=== PATIENT | female | born 1960 | race Caucasian/White ===

== ENCOUNTER 2021-02-06 08:18 | Observation (INO) ==
--- NOTE | 2021-01-06 11:38 | Anesthesiology Consultation ---
Date of Service January 06, 2021 Assessment & Plan (1) Encounter for pre-operative examination: Chart Review Chart Review: Acceptable Risk for Surgery (pending preop Covid testing results ) and Patient NOT seen in Pre Admission Testing Pt with pseudocholinesterase deficiency - Check coags AM DOS Per [facility] communication note on 12/30/20= "Per Dr. Cuevas's nurse-he wrote--OK to stop Warfarin for 5 days, should stay on aspirin. Does not need to be bridged." Per nursing assessment 12/23/2020, patient denies any recent travel. No known Covid infection in the past 90 days. Patient is vaccinated for Covid. No known Covid positive contacts or Covid related symptoms. Preop Covid testing scheduled 01/07/21= will await results. Last seen by cardiology 09/04/2020 = seen for follow-up in regards to bicuspid aortic valve with ascending aortic aneurysm status post mechanical AVR with [employer] [facility] mechanical prosthesis and replacement of ascending aorta with 22 mm Dacron tube graft. 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 Also is following up for hypertension and severe esophageal reflux disease. Patient referred to GI for ongoing reflux issues. We will try hydralazine for blood pressure control. Follow-up in 6 months. History Surgery Operation Date: 01/09/21 08:55 Proposed Procedures p Laparoscipic Hiatal Hernia repair with Toupet Fundoplication (does not need EGD) - Tejas Steele, DO Height/Weight Height: 5 ft 5 in Weight: 108.862 kg Allergies Allergy/AdvReac Type Severity Reaction Status Date / Time codeine Allergy Severe other Verified 12/23/20 10:33 morphine Allergy Severe other Verified 12/23/20 10:33 latex Allergy Unknown Rash Verified 12/23/20 10:33 Penicillins Allergy Unknown PT DOESN'T Verified 12/23/20 10:33 REMEMBER, REACTION A CHILD lidocaine AdvReac Severe Nausea Verified 12/23/20 10:33 carvedilol AdvReac Unknown Cough Verified 12/23/20 10:33 furosemide [From Lasix] AdvReac Unknown "PULLS Verified 12/23/20 10:33 WATER INTO MY LUNGS AND I DROWN" Medications Home Medications Medication Instructions Recorded Confirmed Last Taken aspirin 81 mg tablet,delayed 81 mg PO DAILY 11/06/20 12/23/20 11/08/20 release hydralazine 10 mg tablet 10 mg PO BID 11/06/20 12/23/20 11/11/20 17:00 metoprolol succinate 100 mg 100 mg PO QPM 11/06/20 12/23/20 11/11/20 17:00 tablet,extended release 24 hr multivitamin 1 tab PO DAILY 11/06/20 12/23/20 11/07/20 omeprazole 20 mg capsule,delayed 20 mg PO QPM 11/06/20 12/23/20 11/08/20 17:00 release spironolactone 25 mg tablet 25 mg PO HS 11/06/20 12/23/20 11/11/20 17:00 warfarin 2.5 mg tablet 2.5 mg PO 4XWK 11/06/20 12/23/20 11/08/20 warfarin 5 mg tablet 5 mg PO 3XWK 11/06/20 12/23/20 11/08/20 Past Medical History Medical History (Updated 01/06/21 @ 12:40 by JUDSON CrisostomoC) Acid reflux Bicuspid aortic valve HX S/p AVR 11/2017 (MECHANICAL) WITH REPLACEMENT OF ASCENDING AORTA WITH 28MM DACRON GRAFT Breast tumor HX CYSTIC TUMORS REMOVED - LEFT CAD (coronary artery disease) Single vessel per 2018 cardiac cath - 50-60% stenosis of mild LAD, which was negative by FFR (0.86) COPD (chronic obstructive pulmonary disease) Per records Chronic cough per patient Hiatal hernia History of skin cancer REMOVED HTN (hypertension) Hypercholesteremia Pseudocholinesterase deficiency Past Surgical History Surgical History (Updated 01/06/21 @ 12:35 by JUDSON CrisostomoC) History of breast surgery LEFT History of cardiac catheterization 2018 [place] pre op vavle replacement - no stents History of colonoscopy with polypectomy History of esophagogastroduodenoscopy (EGD) History of open heart surgery WITH AORTIC VALVE REPLACEMENT WITH REPLACEMENT OF ASCENDING AORTA WITH TUBE GRAFT ON DECEMBER 10 2017 - [facility] - 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 LIPOMAS, MULTIPLE AREAS REMOVED FROM History of tubal ligation Social History Smoking Status: Never smoker Do You Dip or Chew Tobacco: No Hx Alcohol Use: No Hx Substance Use: No substance use type: does not use Lab Results Anesthesia Preop Results Results Anesthesia Widget: WBC 7.47 K/uL (4.8-10.8) 12/30/20 Hgb 14.3 g/dL (12.0-16.0) 12/30/20 Hct 43.2 % (37-47) 12/30/20 Plt 303 K/uL (130-400) 12/30/20 Na 138 mmol/L (136-145) 12/30/20 K 4.2 mmol/L (3.5-5.1) 12/30/20 Cl 106 mmol/L (98-107) 12/30/20 CO2 27 mmol/L (21-32) 12/30/20 BUN 20 mg/dl (7-18) H 12/30/20 Creat 1.01 mg/dl (0.6-1.2) 12/30/20 Glucose Level 101 mg/dl (70-99) H 12/30/20 Testing Electrocardiogram Date: 12/31/20 Findings: + NSR @ (69 bpm) Possible left atrial enlargement. Echocardiogram Date: 03/01/20 EF: 55% LV Function: normal RWMA: + none Other Findings: + LVH (Mild) and + diastolic dysfunction (Data inconclusive for analysis) Valvular Disease: + MR (Mild) History of bicuspid aortic valve. Status post [facility]'s 21 mm mechanical aortic valve replacement with normal hemodynamics. Well-seated aortic valve replacement. Status post ascending aortic replacement with a 22 mm Dacron graft (rootsparing). Trace to mild valvular and perivalvular aortic insufficiency. Abnormal septal motion from prior OHS. Mild TR. Cardiac Catheterization Date: 11/08/17 LM = angiographically normal LAD =50-60% mid segment stenosis at takeoff of moderate caliber first diagonal, first diagonal with 20% ostial stenosis Circumflex = luminal irregularities RCA = luminal irregularities Summary: Moderate nonobstructive single-vessel CAD (50-60% mid LAD). Recommendations: Follow-up with cardiology for AVR evaluation.
[~2021-02-06 08:18] MED LIST: CLINDAMYCIN 900 MG in DEXTROSE 5% 50 ML IV SCH; HEPARIN SOD 5,000 UNIT/0.5 ML VIAL SC SCH; HEPARIN SOD 5,000 UNIT/0.5 ML VIAL SQ SCH; LR 15ML/HR IV SCH
[2021-02-06] MEDS ORDERED: fentaNYL citrate 100 MCG/2 ML VIAL ONE ×2 (08:37→11:54)
[2021-02-06] MEDS ORDERED: MIDAZOLAM HCL 1 MG/ML 2ML VIAL ONE (08:37)
[2021-02-06] MEDS ORDERED: LIDOCAINE 2% 2 ML VIAL/AMP(20MG/ML) INFIL ONE (09:18)
[2021-02-06] MEDS ORDERED: DEXAMETHASONE SOD INJ 4 MG/ML VIAL ONE (09:18)
[2021-02-06] MEDS ORDERED: ROCURONIUM BROMIDE 10 MG/ML 5 ML VIAL IV ONE ×2 (09:18→12:53)
[2021-02-06] MEDS ORDERED: PROPOFOL IV EMULSION 10 MG/ML 20 ML VIAL IV ONE (09:18)
[2021-02-06] MEDS ORDERED: ONDANSETRON INJ 2 MG/ML 2 ML VIAL ONE (09:18)
[2021-02-06 09:52] LABS: INR 1.3 (0.9-1.1); Partial Thromboplastin Ratio 1.2; Partial Thromboplastin Time 30.8 Seconds (21.0-31.0); Prothrombin Time 12.6 Seconds (9.0-12.0)
[2021-02-06] MEDS ORDERED: HYDROmorphone INJ 2 MG/ML SYR/VIAL ONE (09:55)
[2021-02-06] MEDS ORDERED: ATROPINE SULFATE 0.1 MG/ML 10ML SYR IV PRN (10:39)
[2021-02-06] MEDS ORDERED: ONDANSETRON INJ 2 MG/ML 2 ML VIAL IV PRN ×2 (10:39→14:58)
[2021-02-06] MEDS ORDERED: ePHEDrine sulfate 50 MG/ML AMP IV PRN (10:39)
--- NOTE | 2021-02-06 10:43 | History & Physical Report ---
Date of Service February 06, 2021 Assessment & Plan (1) Hiatal hernia: Plan: We have discussed today's procedure in detail. We will repair her hiatal hernia and perform a partial fundoplication. We discussed potential risks again which would include bleeding, infection, injury to another structures such as spleen stomach diaphragm lungs etc., DVT, PE, AL, CVA etc. We also discussed postoperative expectations as well as postoperative diet. She will be admitted for 1 night stay following the procedure. I have answered all of her questions. We will proceed today with laparoscopic hiatal hernia repair and partial fundoplication. (2) Chronic cough: (3) GERD (gastroesophageal reflux disease): History of Present Illness Primary Care Provider: DO Rhianna Ernst is here for repair of her large hiatal hernia and a partial fundoplication. She was referred by her quality control checker. She has had longstanding chronic cough large hiatal hernia and acid reflux. She has failed conservative management. She is had no changes to her health status since I had last seen her. She is not on any new medications. Allergies Allergy/AdvReac Type Severity Reaction Status Date / Time codeine Allergy Severe other Verified 02/06/21 08:46 morphine Allergy Severe other Verified 02/06/21 08:46 latex Allergy Unknown Rash Verified 02/06/21 08:46 Penicillins Allergy Unknown PT DOESN'T Verified 02/06/21 08:46 REMEMBER, REACTION A CHILD lidocaine AdvReac Severe Nausea Verified 02/06/21 08:46 carvedilol AdvReac Unknown Cough Verified 02/06/21 08:46 furosemide [From Lasix] AdvReac Unknown "PULLS Verified 02/06/21 08:46 WATER INTO MY LUNGS AND I DROWN" olmesartan [From Benicar] AdvReac Cough Verified 02/06/21 08:46 Home Medications Medication Instructions Recorded Confirmed Type aspirin 81 mg tablet,delayed 81 mg PO DAILY 11/06/20 02/06/21 History release hydralazine 10 mg tablet 10 mg PO BID 11/06/20 02/06/21 History metoprolol succinate 100 mg 100 mg PO QPM 11/06/20 02/06/21 History tablet,extended release 24 hr multivitamin 1 tab PO DAILY 11/06/20 02/06/21 History omeprazole 20 mg capsule,delayed 20 mg PO QPM 11/06/20 02/06/21 History release spironolactone 25 mg tablet 25 mg PO HS 11/06/20 02/06/21 History warfarin 2.5 mg tablet 2.5 mg PO 4XWK 11/06/20 02/06/21 History warfarin 5 mg tablet 5 mg PO 3XWK 11/06/20 02/06/21 History Past Med/Surg History Medical History Acid reflux Bicuspid aortic valve HX S/p AVR 11/2017 (MECHANICAL) WITH REPLACEMENT OF ASCENDING AORTA WITH 28MM DACRON GRAFT Breast tumor HX CYSTIC TUMORS REMOVED - LEFT CAD (coronary artery disease) Single vessel per 2018 cardiac cath - 50-60% stenosis of mild LAD, which was negative by FFR (0.86) COPD (chronic obstructive pulmonary disease) Per records Chronic cough per patient Hiatal hernia History of skin cancer REMOVED HTN (hypertension) Hypercholesteremia Pseudocholinesterase deficiency Surgical History History of breast surgery LEFT History of cardiac catheterization 2018 [place] pre op vavle replacement - no stents History of colonoscopy with polypectomy History of esophagogastroduodenoscopy (EGD) History of open heart surgery WITH AORTIC VALVE REPLACEMENT WITH REPLACEMENT OF ASCENDING AORTA WITH TUBE GRAFT ON DECEMBER 10 2017 - [facility] - 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 How many Children do You have: 0 Feels Safe at Home: Yes Assistive Devices Comment: reading glasses, 3 teeth implants lower Physical Exam Constitutional: WD/WN, vitals as above no acute distress and not ill appearing Eyes: PERRL, conjunctivae normal, anicteric sclerae EOM intact bilaterally ENMT: external ear and nose normal, oropharynx normal Ears: no hearing impairment Neck: trachea midline, no thyromegaly Respiratory: normal respiratory effort; no respiratory distress and does not use accessory muscles Cardiovascular: Rate/Rhythm: regular rate and regular rhythm Gastrointestinal (Abdomen): normal bowel sounds, soft, nontender, no hepatosplenomegaly Skin: no rashes, warm and dry Psychiatric: Orientation: alert, oriented x 3 and cooperative Results & Data ([facility]) Vital Signs (Past 12 Hours) Vital Signs Temp Pulse Resp BP Pulse Ox 02/06/21 08:50 37.2 C 68 20 142/77 H 93
[2021-02-06] MEDS ORDERED: BUPIVACAINE 0.5 % 5 MG/1 ML MPF 30ML VIAL ONE (10:46)
[2021-02-06] MEDS ORDERED: SUGAMMADEX SODIUM 200 MG/2 ML VIAL IV ONE (12:01)
[2021-02-06] MEDS ORDERED: ePHEDrine sulfate 50 MG/ML SYR ONE (12:19)
--- NOTE | 2021-02-06 13:37 | Operative Report ---
PG Post Operative Report Pre & Post Diagnosis Operation Date: 02/06/21 10:05 Pre-Op Diagnosis: Hiatal Hernia; gerd Post-Op Diagnosis: Hiatal Hernia; gerd I identified the patient and participated in the time-out.: Yes Procedure Operation Date: 02/06/21 10:05 Actual Procedures p Laparoscipic Hiatal Hernia Repair with Toupet Fundoplication(Not Applicable) ; posterior gastropexy- Tejas Steele DO Surgeon Tejas Steele DO Shellfish Weigher lola Schmitt Estimated Blood Loss 450 Findings Consistent with Post-Op Diagnosis Specimens none Description of Procedure After informed consent was obtained the patient was taken to the operating room placed in supine position. After successful intubation the abdomen was sterilel y prepped and draped in usual fashion. A supraumbilical incision was made with an 11 blade scalpel and carried down through the soft tissues using cautery. Anterior fascia was opened using cautery and two #0 Vicryl's were placed. Peritoneum was elevated with hemostats and incised under direct vision using a Metzenbaum scissor. A finger sweep was performed and a 12 mm Hyatt trocar was placed. The abdomen was insufflated to 20 mmHg. Laparoscope was inserted and the abdomen examined in 360 degrees. No gross abnormalities were identified initially. A subxiphoid 12 mm port, a right upper quadrant 12 mm port a right upper quadrant 5 mm port and a left upper quadrant 5 mm port were all placed under direct vision. The patient was placed in a steep reverse Trendelenburg position. We used a liver retractor attached to a carroll on the table throughout the case to elevate the left lobe of the liver. Once we elevated the left lobe of the liver there was a moderate probably 6 cm hiatal hernia present with some gastric incarceration. We began by taking down the gastrohepatic ligament using the harmonic scalpel. We did encounter a blood vessel along the lesser curvature of the stomach and had some bleeding which I controlled using a clip funeral home manager as well as the harmonic scalpel. Once we had this under control we continued to come up along the right amalia of the diaphragm taking down hernia sac as we went. We had anesthesia exchange the orogastric tube for a 50 [place] bougie so we could identify the esophagus throughout the case. I continued up around the anterior portion of the hernia defect and down along the left crura of the diaphragm. We continued to use primarily traction/ countertraction and blunt dissection as well as Harmonic scalpel to take down the hernia sac. Once we had the hernia sac down the stomach was easily reduced into the abdominal cavity and had no tension on it superiorly. Next we took down the top four short gastric vessels again using the harmonic scalpel. Once this was freed up I then primarily closed the hernia defect anteriorly using the Endo Stitch device with 0 Surgidac sutures. The visualization posteriorly was not adequate to primarily close the defect below the esophagus. Once we had the hernia defect completely closed I then made a small retrogastric window just superior to the left gastric vessel. A grasper was placed through the window and the fundus of the stomach was grasped and easily pulled through the window. It was easy to perform a shoeshine test and there was no tension pulling the fundus laterally. I secured the fundus to the right amalia of the diaphragm for a posterior gastropexy. Once this was accomplished I then secured the fundus of the stomach to the anterior esophageal fat pad. We also attached the body of the stomach on the lateral side to the anterior esophageal fat pad completing a 270 degree fundoplication. Again the stomach laid in this position easily with no tension in any direction. We thoroughly irrigated the upper abdomen. Once the procedure was completed anesthesia easily withdrew the 50 [place] bougie without difficulty. There was adequate hemostasis at the end of the procedure. All the trochars as well as a liver retractor were removed. The abdomen was desufflated. The fascia of the camera port was closed using 0 Vicryl in a [id number] fashion. All wounds were irrigated and closed using 4 Monocryl. Marcaine with epinephrine was injected around the incisions for postoperative analgesia and skin glue used as a dressing. The patient was awakened extubated and transferred to recovery in stable condition. My physician speech language assistant was present for the entire case. He was instrumental in running the camera as well as exposure throughout my dissection and repair as well as with wound closure and dressing placement. I attest to the content of the Intraoperative Record and any orders documented therein. Any exceptions are noted below.
[2021-02-06] MEDS: fentaNYL citrate 100 MCG/2 ML VIAL IV PRN ×3 (13:40→14:02)
--- NOTE | 2021-02-06 14:45 | Anesthesiology Progress Note ---
Date of Service February 06, 2021 Anesthesia Post Procedure Vital Signs Vital Signs: Temp Pulse Pulse Resp BP BP Pulse Ox 02/06/21 14:20 62 16 146/80 H 96 02/06/21 14:10 36.5 C 67 16 152/85 H 96 02/06/21 14:00 69 16 149/84 H 96 02/06/21 13:50 65 12 153/83 H 99 02/06/21 13:40 67 16 150/85 H 97 02/06/21 13:30 64 20 170/84 H 100 02/06/21 13:26 36.3 C L 98 H 16 157/76 H 98 02/06/21 08:50 37.2 C 68 20 142/77 H 93 Pain Intensity Abdomen: Pain Intensity: 0 Transfer of Care Handoff Completed per policy Notes Mental Status: alert / awake / arousable Patient Amnestic to Procedure: Yes Nausea / Vomiting: adequately controlled Pain: adequately controlled Airway Patency, RR, SpO2: stable & adequate BP & HR: stable & adequate Hydration State: stable & adequate Anesthetic Complications: no major complications apparent
[2021-02-06] MEDS ORDERED: oxyCODONE/ACETAMINOPHEN 5mg/325mg TAB PO PRN ×2 (14:58)
[2021-02-06] MEDS ORDERED: MEPERIDINE HCL 25 MG/ML CARP/VIAL IV PRN (14:58)
[2021-02-06] MEDS: LACTATED RINGER'S 1,000 ML IV SCH (15:40)
[2021-02-06] MEDS: hydrALAZINE 10 MG TAB PO SCH (20:30)
[2021-02-06] MEDS ORDERED: METOPROLOL SUCC 50MG EXT REL TAB PO SCH (21:00)
[2021-02-06] MEDS ORDERED: SPIRONOLACTONE 25 MG TAB PO SCH (21:00)
[2021-02-06] MEDS ORDERED: PANTOprazole 40 MG TAB PO SCH (21:00)
[2021-02-06] MEDS: ACETAMINOPHEN 325 MG TAB PO PRN (21:33)
[2021-02-07] MEDS: LACTATED RINGER'S 1,000 ML IV SCH (01:54)
[2021-02-07 06:09] LABS: Hematocrit (blood only) 37.6 % (37-47); Hemoglobin 12.5 g/dL (12.0-16.0)
[2021-02-07] MEDS: ACETAMINOPHEN 325 MG TAB PO PRN (07:28)
--- NOTE | 2021-02-07 08:43 | Surgery Progress Note ---
Date of Service February 07, 2021 Assessment & Plan (1) Hiatal hernia: Plan: pod 1. doing well ok for d/c diet/instructions given f/u in 1 week. Admission and Anticipated Discharge Date Admission Date: February 06, 2021 Subjective pt seen. feeling well. mayuri liquids. wants to go home. Physical Exam Physical Exam: alert. nad. abd :soft expected tenderness. Results & Data ([facility]) Vital Signs (Past 12 Hours) Vital Signs Temp Pulse Pulse Resp BP Pulse Ox 02/07/21 07:50 36.7 C 73 18 146/81 H 92 02/07/21 02:29 36.7 C 62 17 161/82 H 96 02/06/21 22:24 36.6 C 71 17 174/85 H 93 PG Care Time/CCT Total # of Minutes Spent Total Time Spent with Patient: Total time spent is greater than 50% in coordination of care (as documented) at patient's floor/unit and/or counseling patient: Coding Level of Care Code None Diagnoses Hiatal hernia K44.9
[2021-02-07] MEDS: hydrALAZINE 10 MG TAB PO SCH (08:51)
[2021-02-07] MEDS ORDERED: ASPIRIN 81 MG ECTAB PO SCH (09:00)
--- NOTE | 2021-02-07 09:10 | Discharge Summary ---
Date of Service February 07, 2021 Admission HPI Per Admitting Provider Rhianna is here for repair of her large hiatal hernia and a partial fundoplication. She was referred by her mattress spring encaser. She has had longstanding chronic cough large hiatal hernia and acid reflux. She has failed conservative management. She is had no changes to her health status since I had last seen her. She is not on any new medications. Principal Diagnosis Hiatal Hernia GERD Discharge Exam Constitutional WD/WN, vitals as above Gastrointestinal (Abdomen) Inspection/Auscultation: + abdominal surgical incision (dry); abdomen not distended Percussion/Palpation: abdomen soft Discharge Data Allergies Allergy/AdvReac Type Severity Reaction Status Date / Time codeine Allergy Severe other Verified 02/06/21 08:46 morphine Allergy Severe other Verified 02/06/21 08:46 latex Allergy Unknown Rash Verified 02/06/21 08:46 Penicillins Allergy Unknown PT DOESN'T Verified 02/06/21 08:46 REMEMBER, REACTION A CHILD lidocaine AdvReac Severe Nausea Verified 02/06/21 08:46 carvedilol AdvReac Unknown Cough Verified 02/06/21 08:46 furosemide [From Lasix] AdvReac Unknown "PULLS Verified 02/06/21 08:46 WATER INTO MY LUNGS AND I DROWN" olmesartan [From Benicar] AdvReac Cough Verified 02/06/21 08:46 Procedures Performed Operation Date: 02/06/21 10:05 Actual Procedures p Laparoscipic Hiatal Hernia Repair with Toupet Fundoplication(Not Applicable) - Tejas Steele, DO Hospital Course (1) Hiatal hernia: 60 y/o female with hiatal hernia and GERD was taken to the operating room for laparoscopic repair of hernia and Toupet fundoplication. She was transferred to the surgical floor for overnight observation. In the morning she was able to tolerate liquid diet and tolerate oral analgesics and was stable for discharge home. Total Time Total Time Spent Total Time Spent (In Minutes): 15 Discharge Plan Discharge Items Patient Disposition: Home - Self-Care Reason For Visit: Hiatal Hernia Discharge Diagnosis: laparoscopic repair of hital hernia Activity: As commented below Lifting: No more than 10 pounds Bathing Comment: can shower Driving/Machine Use: when pain free Non-emergency contact: Surgeon Call non-emergency contact if: you have any medication questions, you have a fever, your temperature is above 101.5 and your wound has increased redness Follow-up/Referrals: Tejas Steele DO [Surgeon] - (In approx 2 weeks as planned) Andrae Alvarado DO [Primary Care Provider] - Diet: Other - See Diet Comment Diet Comment: as discussed, things that can be eaten with a spoon Addtl Attending Provider Instructions: Pending Studies at Discharge: No Stand-Alone Forms: My [facility] [employer], Smoking Cessation Medications and DC Order Prescriptions: New oxycodone-acetaminophen [Percocet] 5-325 mg tablet 1 - 2 tab PO Q4H PRN (Reason: pain, initial therapy, max 6 daily) Qty: 18 RF: 0 Continued warfarin 2.5 mg Tablet 2.5 mg PO 4XWK RF: 0 aspirin 81 mg Tablet,Delayed Release (Dr/Ec) 81 mg PO DAILY RF: 0 spironolactone 25 mg Tablet 25 mg PO HS RF: 0 warfarin 5 mg Tablet 5 mg PO 3XWK RF: 0 hydralazine 10 mg Tablet 10 mg PO BID RF: 0 metoprolol succinate 100 mg Tablet Extended Release 24 Hr 100 mg PO QPM RF: 0 omeprazole 20 mg Capsule,Delayed Release(Dr/Ec) 20 mg PO QPM RF: 0 multivitamin Tablet 1 tab PO DAILY RF: 0 Discharge Orders: Discharge Order (Routine); Ordered 02/07/21 Ordered By: Brandyn Schmitt Jr Admission Data Admit Date/Time: 02/06/21 13:35 Attending Provider: Tejas Steele Admit Provider: Tejas Steele Primary Care Provider: Andrae Alvarado Coding Level of Care Code D/C DAY MANAGEMENT <30 MINS Diagnoses Hiatal hernia K44.9
== END 2021-02-07 10:24 | disposition home or self-care (01) ==
LOC: 3N 08:18 → ASU 08:18